=== PATIENT | female | born 1965 | race Caucasian/White ===

== ENCOUNTER 2021-04-02 15:26 | Inpatient (IN) | payer OTHER ==
[2021-04-02 16:52] LABS: BASOPHIL 0.3 % (0-2); EOSINOPHIL 0 % (0-5); HGB 12.8 g/dl (12.5-16.0); LYMPHOCYTE 9.2 % (15-48); MCH 30.7 pg (25.0-31.0); MCHC 33.7 g/dL (32.0-36.0); MCV 91.1 fL (78.0-100.0); MONOCYTE 5.4 % (0-12); MPV 9.5 fL (6.0-9.5); NEUTROPHIL 83.4 % (41-80); NRBC 0; PLT 317 K/uL (150-400); RBC 4.17 M/uL (4.20-5.40); RDW 12.1 % (11.5-14.0); WBC 5.7 K/uL (4.0-10.5)
[2021-04-02 17:11] LABS: PRO-BNP 80 pg/mL (<125)
[2021-04-02 17:20] LABS: LACTIC ACID 1.6 mmol/L (0.4-1.9)
[2021-04-02 17:24] LABS: BILIRUBIN 2+ mg/dL (NEGATIVE); BLOOD TRACE-INTACT Ery/uL (NEGATIVE); CLARITY CLEAR (CLEAR); COLOR YELLOW (YELLOW); GLUCOSE (U) NORMAL (NORMAL); LEUKOCYTES NEGATIVE Leu/uL (NEGATIVE); NITRITE NEGATIVE (NEGATIVE); PROTEIN 2+ mg/dL (NEGATIVE)
[2021-04-02 17:30] LABS: BACTERIA 1+; MUCOUS TRACE
[2021-04-02 18:05] LABS: ALBUMIN 2.8 g/dL (3.4-5.0); ALKALINE PHOSHATASE 78 U/L (46-116); ALT 36 U/L (14-59); AST 60 U/L (15-37); BILIRUBIN - TOTAL 0.5 mg/dL (0.2-1.0); BUN 12 mg/dL (7-18); BUN/CREAT RATIO (CALC) 20.3 RATIO; CHLORIDE 96 mmol/L (98-107); CO2 (BICARBONATE) 29 mmol/L (21-32); CREATININE 0.59 mg/dL (0.51-0.95); GLUCOSE 105 mg/dL (74-106); LDH 543 U/L (81-234); POTASSIUM 3.6 mmol/L (3.5-5.1); TOTAL PROTEIN 7.8 g/dL (6.4-8.2)
[2021-04-02 18:11] LABS: C-REACTIVE PROTEIN > 18.00 mg/dL (<=0.90)
[2021-04-03 06:01] LABS: BASOPHIL 0.5 % (0-2); EOSINOPHIL 0 % (0-5); HCT 36.3 % (37.0-47.0); HGB 12.2 g/dl (12.5-16.0); LYMPHOCYTE 17.4 % (15-48); MCH 31.1 pg (25.0-31.0); MCHC 33.6 g/dL (32.0-36.0); MCV 92.6 fL (78.0-100.0); MONOCYTE 7.2 % (0-12); MPV 9.2 fL (6.0-9.5); NEUTROPHIL 72.1 % (41-80); NRBC 0; PLT 323 K/uL (150-400); RBC 3.92 M/uL (4.20-5.40); RDW 12.1 % (11.5-14.0)
[2021-04-03 06:02] LABS: WBC 4.3 K/uL (4.0-10.5)
[2021-04-03 08:08] LABS: ALBUMIN 2.3 g/dL (3.4-5.0); ALKALINE PHOSHATASE 82 U/L (46-116); ALT 33 U/L (14-59); AST 48 U/L (15-37); BILIRUBIN - TOTAL 0.3 mg/dL (0.2-1.0); BUN 11 mg/dL (7-18); BUN/CREAT RATIO (CALC) 19.6 RATIO; C-REACTIVE PROTEIN >18.00 mg/dL (<=0.90); CHLORIDE 102 mmol/L (98-107); CO2 (BICARBONATE) 28 mmol/L (21-32); CREATININE 0.56 mg/dL (0.51-0.95); GLOBULIN (CALCULATION) 4.1 g/dL; GLUCOSE 146 mg/dL (74-106); LDH 461 U/L (81-234); POTASSIUM 4.1 mmol/L (3.5-5.1); TOTAL PROTEIN 6.4 g/dL (6.4-8.2)
[2021-04-05 07:34] LABS: BASOPHIL 0.3 % (0-2); EOSINOPHIL 0 % (0-5); HCT 37.2 % (37.0-47.0); HGB 12.3 g/dl (12.5-16.0); LYMPHOCYTE 14.8 % (15-48); MCHC 33.1 g/dL (32.0-36.0); MCV 93.7 fL (78.0-100.0); MONOCYTE 9.8 % (0-12); NEUTROPHIL 71.5 % (41-80); NRBC 0; PLT 436 K/uL (150-400); RBC 3.97 M/uL (4.20-5.40); RDW 11.9 % (11.5-14.0); WBC 9.5 K/uL (4.0-10.5)
[2021-04-05 08:03] LABS: ALBUMIN 2.2 g/dL (3.4-5.0); BILIRUBIN - TOTAL 0.3 mg/dL (0.2-1.0); BUN/CREAT RATIO (CALC) 32.8 RATIO; CREATININE 0.61 mg/dL (0.51-0.95); GLOBULIN (CALCULATION) 4.1 g/dL; TOTAL PROTEIN 6.3 g/dL (6.4-8.2)
--- NOTE | 2021-04-05 15:59 | NUR ---
04/05/21 Will monitor for 02 needs
[2021-04-08 06:42] LABS: BASOPHIL 0.6 % (0-2); EOSINOPHIL 0.4 % (0-5); HCT 37.3 % (37.0-47.0); HGB 12.3 g/dl (12.5-16.0); LYMPHOCYTE 22.9 % (15-48); MCH 30.9 pg (25.0-31.0); MCV 93.7 fL (78.0-100.0); MONOCYTE 8.3 % (0-12); MPV 9.7 fL (6.0-9.5); NEUTROPHIL 61.5 % (41-80); NRBC 0; PLT 497 K/uL (150-400); RBC 3.98 M/uL (4.20-5.40); RDW 11.7 % (11.5-14.0); WBC 11.5 K/uL (4.0-10.5)
[2021-04-08 07:13] LABS: ALBUMIN 2.3 g/dL (3.4-5.0); BILIRUBIN - TOTAL 0.3 mg/dL (0.2-1.0); BUN/CREAT RATIO (CALC) 28.4 RATIO; C-REACTIVE PROTEIN 0.9 mg/dL (<=0.90); CREATININE 0.67 mg/dL (0.51-0.95); GLOBULIN (CALCULATION) 3.9 g/dL; MAGNESIUM 2.2 mg/dL (1.8-2.4); POTASSIUM 4.5 mmol/L (3.5-5.1); TOTAL PROTEIN 6.2 g/dL (6.4-8.2)
[2021-04-08] MEDS ORDERED: DEXAMETHASONE6 MG PO (11:52)
[2021-04-08] MEDS ORDERED: OLUMIANT2 MG PO (11:53)
--- NOTE | 2021-04-08 12:02 | NUR ---
04/08/21 A referral was made to [facility] for 02 per patient choice.
== END 2021-04-08 14:00 | disposition home or self-care (01) | DRG 177 ==
LOC: FER 15:26 → FTCU 17:40
PROVIDERS: Allergy & Immunology Allergy; Emergency Medicine; Internal Medicine; Nurse Practitioner; ADMIT Internal Medicine
PROC: XW033E5 Introduction of Remdesivir Anti-infective into Peripheral Vein, Percutaneous Approach, New Technology Group 5 (ICD-10-PCS; principal; 2021-04-02)
PROC: 8E0ZXY6 Isolation (ICD-10-PCS; 2021-04-02)
PROC: XW0DXM6 Introduction of Baricitinib into Mouth and Pharynx, External Approach, New Technology Group 6 (ICD-10-PCS; 2021-04-04)
DX: U07.1 COVID-19 (principal); J12.82 Pneumonia due to coronavirus disease 2019; J96.01 Acute respiratory failure with hypoxia; K76.89 Other specified diseases of liver; E86.0 Dehydration; K21.9 Gastro-esophageal reflux disease without esophagitis; R59.0 Localized enlarged lymph nodes; Z87.891 Personal history of nicotine dependence
CPT/HCPCS: 36415; 36600; 71250; 80053; 81001; 82728; 82803; 83605; 83615; 83735; 83880; 84145; 84443; 84484; 85025; 86140; 93005; 94762; C9399; J0456; J1100; J1650; J7030; J7050; U0002